=== PATIENT | female | born 1975 | race Hispanic/Latino ===

== ENCOUNTER 2018-03-06 09:33 | Outpatient (CLI) | payer BC ==
--- NOTE | 2018-03-06 10:38 | XRay Report ---
BILATERAL HIPS WITH PELVIS, 3 VIEWS: History: Pain. Findings: Bone mineralization is within normal limits. There is no evidence for fracture, dislocation or pelvic diastasis. No advanced joint pathology is detected. The soft tissues are unremarkable. Impression: Unremarkable exam.
--- NOTE | 2018-03-06 10:40 | XRay Report ---
LUMBOSACRAL SPINE, 5 VIEWS History: Back pain. Findings: There is normal bone mineralization. Mild levocurvature to the lumbar spine is identified measuring up proximally 7 degrees from the level of L1-L5. There is normal height and alignment of the vertebral bodies otherwise. No evidence for compression deformity, subluxation or bone lesion. Minimal degenerative disc disease is noted at L3-4. Mild facet arthropathy is identified at L2-3 and L3-4. No spondylolysis. The oblique images demonstrate no evidence for significant neural foraminal narrowing. No pars defect. The sacrum and SI joints are within normal limits. Impression: Mild levoscoliosis of the lumbar spine with early degenerative findings as described.
== END 2018-03-06 09:34 | disposition home or self-care (01) ==
LOC: XRAY 09:33
PROVIDERS: ATTEND Internal Medicine
DX: M41.86 Other forms of scoliosis, lumbar region (principal); M47.896 Other spondylosis, lumbar region; M25.551 Pain in right hip; M25.552 Pain in left hip
CPT/HCPCS: 72110; 73521